=== PATIENT | male | born 1970 | race Caucasian/White ===

== ENCOUNTER 2016-11-06 05:16 | Emergency (ER) | payer OTHER ==
[~2016-11-06] VITALS: Ht 188 cm; Wt 178.4 kg
[~2016-11-06 05:16] MED LIST: CIPRO500 MG PO; CO Q-10300 MG PO; CRESTOR10 MG PO; CYMBALTA30 MG PO; CYMBALTA60 MG PO; ECOTRIN325 MG PO; Ecotrin PO; LEVAQUIN500 MG PO; LIPITOR80 MG PO; LISINOPRIL10 MG PO; LOPRESSOR25 MG PO; NOHOMEMEDS; PERCOCET 5/31 TABLET PO; PLAVIX75 MG PO; SIMVASTATIN40 MG PO; SLO-NIACIN250 MG PO; TOPROL XL100 MG PO; ZESTRIL,PRINIVI10 M1 PO
[2016-11-06] MEDS ORDERED: TORADOL10 MG PO (08:36)
[2016-11-06 08:48] VITALS: BP 135/65
== END 2016-11-06 08:50 | disposition home or self-care (01) ==
LOC: EME 05:16
DX: M54.5 Low back pain (principal); G89.29 Other chronic pain; Z98.890 Other specified postprocedural states
CPT/HCPCS: 99281; 99284; J1170; J1885